=== PATIENT | male | born 1970 | race Caucasian/White ===

== ENCOUNTER 2018-04-16 08:48 | Inpatient (IN) | payer BC, OTHER, SELFPAY ==
[2018-04-16 09:23] LABS: #Lymphocytes 1.5 thou/uL (1.20-3.40); #Monocytes 0.6 thou/uL (0.11-0.59); #Neutrophils 7.2 thou/uL (1.40-6.50); %Basophils 0.2 % (0.0-1.0); %Eosinophils 0.1 % (0.0-10.0); %Lymphocytes 15.9 % (21.0-51.0); %Monocytes 6.5 % (0.0-10.0); %Neutrophils 77.3 % (42.0-75.0); Hemoglobin 15.6 g/dL (14.0-18.0); Mean Corpuscular HGB CONC 33.5 g/dL (32.0-36.0); Mean Corpuscular Hemoglobin 34.2 pg (27.0-31.0); Mean Platelet Volume 7.6 fL (7.4-10.4); Platelet Count 255 thou/uL (130-400); RBC Distribution Width 11.1 % (11.5-14.5); Red Blood Cell (RBC) Count 4.57 mill/uL (4.70-6.10); White Blood Cell (WBC) Count 9.4 thou/uL (4.8-10.8)
[2018-04-16] MEDS ORDERED: Iopamidol 370 76% 100 ML VIAL ONE (09:29)
[2018-04-16] MEDS ORDERED: Iopamidol 370 76% 50 ML VIAL FS ONE (09:29)
[2018-04-16] MEDS ORDERED: Aspirin Chewable 81 MG TAB ONE (09:37)
[2018-04-16 09:45] LABS: ALT (SGPT) 38 U/L (8-55); AST (SGOT) 117 U/L (5-34); Albumin 4.6 g/dL (3.5-5.0); Alkaline Phosphatase 122 U/L (40-150); Anion Gap 13 mmol/L (10-20); BUN (Urea Nitrogen) 11 mg/dL (8.9-20.6); Bilirubin, Total 0.5 mg/dL (0.2-1.2); CK (CPK) 1672 U/L (30-200); Calc. Creatinine Clearance 0 mL/min (70-130); Calcium 11.3 mg/dL (7.8-10.44); Carbon Dioxide 28 mmol/L (22-29); Chloride 101 mmol/L (98-107); Estimated GFR-MDRD 78; Globulin 3.1 g/dL (2.4-3.5); Glucose 124 mg/dL (70-105); Potassium 4.1 mmol/L (3.5-5.1); Protein, Total 7.7 g/dL (6.0-8.3); Sodium 138 mmol/L (136-145)
--- NOTE | 2018-04-16 10:01 | RAD ---
PA AND LATERAL CHEST: History: Chest pain. Palpitations. FINDINGS: Heart size is normal. The lungs are expanded without focal areas of consolidation, pneumothoraces or pleural effusions. No acute osseous abnormality is seen. IMPRESSION: No radiographic evidence of acute cardiopulmonary process. POS: C
[2018-04-16] MEDS ORDERED: Nitroglycerin 2% Ointment 1 INCH/1 GM Packet ONE (10:26)
[2018-04-16 10:31] LABS: Bilirubin Negative (Negative); Blood, Urine Moderate (Negative); Clarity CLOUDY (Clear); Glucose, Urine (Dipstick) Negative (Negative); Leukocyte Moderate (Negative); Nitrite Negative (Negative); Protein, Urine (Dipstick) 100 mg/dL (Neg-Trace); Specific Gravity, Urine 1.026 (1.002-1.036); Urobilinogen 0.2 mg/dL (0.2-1.0); pH, Urine 5.5 (5.0-9.0)
[2018-04-16 10:32] LABS: Bacteria/HPF None Seen HPF (None Seen); Hyaline Casts/LPF 4-6 HYALINE CAST LPF (0-3 Hyaline); Pathc Cast-AUWi Flag 0.29 (0-2.49)
[2018-04-16 10:38] LABS: Renal Epithelial 0-3 HPF (0-3); Transitional Epithelial 0-3 HPF (0-3)
[2018-04-16 10:43] LABS: Amphetamine Not Detected (NotDetected); Barbiturates Screen Not Detected (NotDetected); Benzodiazepine Screen Not Detected (NotDetected); Cocaine Metabolite Screen Not Detected (NotDetected); Medtox Control Line Valid? VALID (VALID); Medtox Reader # READER 4; Methadone Not Detected (NotDetected); Methamphetamine Not Detected (NotDetected); Opiate Screen Not Detected (NotDetected); Oxycodone Screen Not Detected (NotDetected); Phencyclidine (PCP) Not Detected (NotDetected); THC/Cannabinoid Screen Not Detected (NotDetected); Tricyclic Screen Not Detected (NotDetected)
[2018-04-16] MEDS ORDERED: Enoxaparin Sodium 100 MG/ML SYRINGE ONE (10:43)
[2018-04-16 10:51] LABS: CKMB 184.8 ng/mL (0-6.6)
[2018-04-16 11:10] LABS: Acetaminophen Less than 6.0 mcg/mL (10.0-30.0); Alcohol Less than 10 mg/dL (Less than 10); Salicylate Less than 8.0 mg/dL (15.0-30.0)
[2018-04-16] MEDS ORDERED: Fentanyl 100 MCG/2 ML VIAL ONE ×2 (11:28→12:35)
[2018-04-16] MEDS ORDERED: Nitroglycerin 50 MG/250 ML BOT 250 ML ONE (11:45)
[2018-04-16] MEDS ORDERED: Midazolam HCl 2 mg/2 ml Vial ONE (12:35)
[2018-04-16] MEDS ORDERED: Verapamil 5 MG/2 ML VIAL ONE (12:35)
[2018-04-16] MEDS ORDERED: Nitroglycerin 100MG/250ML BOT 250 ML ONE (12:35)
[2018-04-16] MEDS ORDERED: Heparin 10,000 UNITS/1 ML VIAL ONE (12:35)
[2018-04-16] MEDS ORDERED: Lidocaine 1% (PF) 30 ML VIAL ONE (12:40)
[2018-04-16] MEDS ORDERED: Adenosine 6 MG/2 ML VIAL ONE (13:19)
[2018-04-16] MEDS ORDERED: Aggrastat 12.5 MG/250 ML 250 ML ONE (13:54)
[2018-04-16] MEDS ORDERED: Sodium Chloride 0.9% 1,000 ML IV SCH ×2 (14:11→14:15)
[2018-04-16] MEDS ORDERED: Ondansetron PF 4 MG/2 ML Vial IVP PRN (14:11)
[2018-04-16] MEDS ORDERED: Aggrastat 12.5 MG/250 ML 250 ML IVPB SCH (14:15)
[2018-04-16 14:52] VITALS: BMI 23.8
[2018-04-16 17:34] LABS: Troponin I 140.218 ng/mL (< 0.028)
--- NOTE | 2018-04-16 17:43 | CON ---
DATE OF CONSULTATION: 04/16/2018 REASON FOR CONSULTATION: Chest pain. HISTORY OF PRESENT ILLNESS: Mr. Colmenares is a pleasant 48-year-old white gentleman, who comes to the hospital for substernal chest pain that has been going on for about 12 hours. He was lifting some heavy bags yesterday as his is in the hospital and he was climbing some stairs and had sudden onset of chest tightness and diaphoretic. He made it to his 's room who was in the hospital for other reasons, and noted he was pale and diaphoretic and told him he did not look good and to go home. He actually went home and could not sleep, could not get comfortable all night long. This morning because he kept having the pain, he decided to come in for evaluation. In the ER, he was noted to have initial troponin of 8. He had ongoing chest pain. He did get better with morphine. However, his EKG was concerning for an evolving anterior NM, so Cardiology was consulted. On our evaluation, Mr. Colmenares was pain free as he had just received some morphine. However, his EKG agreed with Dr. Matthews that was concerning for an evolving anterior NM, so he was taken to the catheterization lab, where he was found to have an occluded LAD. This was opened successfully. Talking with Mr. Colmenares before the procedure, he stated that he did not think he would be able to take medicines for a whole year, so he actually picked the bare-metal stents versus drug-eluting stents, which I think it is appropriate as he is being honest with how he takes medicines. He did quite well during the procedure. He had two bare-metal stents placed in his LAD and is doing much better. His pain level is now down to zero, and his blood pressure is much better controlled. PAST MEDICAL HISTORY: 1. Hypertension. 2. Hyperlipidemia. PAST SURGICAL HISTORY: Kidney stone removal. SOCIAL HISTORY: Social alcohol use. Denies drug use. No tobacco. OUTPATIENT MEDICATIONS: Amlodipine 10 mg a day. ALLERGIES: NO KNOWN DRUG ALLERGIES. REVIEW OF SYSTEMS: A 12-point review of systems was done and was found to be negative unless stated in the history of present illness. PHYSICAL EXAMINATION: VITAL SIGNS: Temperature 98.0, pulse 75, respiratory rate 24, saturating 99% on room air, blood pressure 174/108. GENERAL: Awake, alert, and oriented x3. No distress. HEENT: Normocephalic and atraumatic. NECK: Supple. LUNGS: Clear. CARDIOVASCULAR: S1 and S2. No S3 or S4. No murmurs. ABDOMEN: Soft. Positive bowel sounds. EXTREMITIES: No edema. SKIN: Warm and dry. LABORATORY DATA: Laboratory work was reviewed. UDS was negative. UA with moderate leukocyte esterase, greater than 50 white cells. Chemistries unremarkable except for glucose of 124, calcium 11.3, AST 117, CK-MB was 184 on arrival, and a troponin of 8.3 already. CBC with a hemoglobin of 15, hematocrit 46, platelet count 255. EKG was reviewed. Chest x-ray was reviewed. ASSESSMENT AND PLAN: 1. Anterior ST-elevation myocardial infarction, late presentation, status post bare-metal stent to the left anterior descending artery. Doing better. I expect him to have severe left ventricular dysfunction given the late presentation of his myocardial infarction. 2. Hypertension: Blood pressure is better after pain is better controlled. We will start low-dose beta polly. We will probably hold off on any more amlodipine as he will need heart failure medications. 3. Hyperlipidemia. PLAN: 1. High dose statin 80 mg of atorvastatin. 2. Aspirin 81 and Brilinta 90 mg b.i.d. for 1 month minimum ideally for one year. 3. We will start low-dose beta polly. Hold on the calcium channel polly. 4. ZULEMA inhibitor as blood pressure allows next few days. 5. Admit to the ICU. Thank you for letting me to participate in the care of your patient. We will follow. Job ID: [id number]
[2018-04-16] MEDS: Carvedilol 3.125 MG TAB PO SCH (18:44)
--- NOTE | 2018-04-16 18:47 | HP ---
CHIEF COMPLAINT: Chest pain. HISTORY OF PRESENT ILLNESS: The patient is a 48-year-old male, who came to see his who is hospitalized at [facility] and he visited with her and he went home, he started having some chest pain. He felt that this was related to the heavy object he was caring with him. He put some ice on his chest, but it did not really change anything. He got clammy and he did not have any nausea or vomiting. He came back and was found to have elevated troponin when he was evaluated in the emergency room and his decision was made about further investigation of his problem and treatment of his cardiac condition. At the time of admission, his blood pressure was elevated at 187/108, pulse was 93, and respirations 20 and nonlabored. PAST MEDICAL HISTORY: 1. Hypertension. 2. Nephrolithiasis. PAST SURGICAL HISTORY: Kidney stone removal more than 10 years ago. PSYCHIATRIC HISTORY: None. SOCIAL HISTORY: He drinks socially. He denies any alcohol intake. He smokes marijuana from time to time. MEDICATIONS: Amlodipine. ALLERGIES: NONE. REVIEW OF SYSTEMS: All 14 systems were reviewed and they were negative except for symptoms mentioned in the HPI. PHYSICAL EXAMINATION: GENERAL: He is not in any shortness of breath at the time of my visit, but he complains about the chest pain, rated at 6 or 7. VITAL SIGNS: His blood pressure is 181/132, pulse is 84, and respiratory rate is 20. He is afebrile. HEENT: His head is atraumatic and normocephalic. Eyes are PERRLA. Sclerae are nonicteric. Oral mucosa is moist. NECK: Supple. LUNGS: Clear. HEART: S1 and S2, normal. No S3. No S4. ABDOMEN: Soft and nontender. Bowel sounds are present. No organomegaly. EXTREMITIES: No clubbing, cyanosis, or edema. NEUROLOGIC: He is alert and oriented x4. There is no any motor or sensory deficit present. Cranial nerves are intact. LABORATORY DATA: Labs showed white count of 9.4, hemoglobin 15.6, hematocrit 46.6, and platelet count is 255,000, normal electrolytes. Glucose 124, creatinine 1.02, calcium 11.3, creatine kinase 1,672, CK-MB 184.8, troponin I 8.391. Urine showed 100 of proteins; trace of ketones; moderate blood; moderate leukocyte esterases; wbc's greater than 52, too numerous to count; 4 to 6 squamous epithelial cells; and 4 to 6 hyaline casts. Toxicology negative. Plasma alcohol less than 10. Chest x-ray personally reviewed by me did not show any acute cardiopulmonary problem. Electrocardiogram showed normal sinus rhythm with inverted T-waves in V1, V2, V4, and V5. Q-wave in V2 and V3. IMPRESSION: 1. Acute coronary syndrome. 2. Uncontrolled hypertension. 3. Possible urinary tract infection. PLAN: Admission to Critical Care. Condition is guarded. IV normal saline 100 mL/h. Bathroom privileges and heart healthy diet. Cardiology consultation with Dr. Espinosa was contacted and he wants to take him to the laborer airport maintenance the next 30 minutes. He received 4 baby aspirins. We will start him on nitroglycerin drip and morphine p.r.n. He received 20 mg of labetalol IV push and Nitro-Bid transdermal 1 inch topical. He will have SCDs for DVT prophylaxis. Job ID: [id number]
[2018-04-16] MEDS ORDERED: ALPRAZolam 0.5 MG TAB PO SCH (20:00)
[2018-04-16] MEDS: TICAGRELOR 90 MG TABLET PO SCH (20:25)
[2018-04-16] MEDS: Atorvastatin Calcium 40 MG TAB PO SCH (20:25)
[2018-04-16 23:14] LABS: Critical Call Chem Troponin I RESULT DECREASING
[2018-04-16 23:35] LABS: CKMB 178.3 ng/mL (0-6.6); Critical Call CKMB RESULT DECREASING
[2018-04-17 06:04] LABS: #Eosinphils 0.1 thou/uL (0.0-0.7); #Lymphocytes 1.8 thou/uL (1.20-3.40); #Monocytes 0.6 thou/uL (0.11-0.59); #Neutrophils 4.9 thou/uL (1.40-6.50); %Basophils 0.6 % (0.0-1.0); %Eosinophils 0.9 % (0.0-10.0); %Monocytes 8.2 % (0.0-10.0); %Neutrophils 66.4 % (42.0-75.0); Hemoglobin 14.9 g/dL (14.0-18.0); Mean Corpuscular HGB CONC 34.4 g/dL (32.0-36.0); Mean Corpuscular Hemoglobin 35.2 pg (27.0-31.0); Mean Platelet Volume 7.8 fL (7.4-10.4); Platelet Count 198 thou/uL (130-400); RBC Distribution Width 11.1 % (11.5-14.5); Red Blood Cell (RBC) Count 4.24 mill/uL (4.70-6.10); White Blood Cell (WBC) Count 7.3 thou/uL (4.8-10.8)
[2018-04-17 06:34] LABS: ALT (SGPT) 49 U/L (8-55); AST (SGOT) 188 U/L (5-34); Albumin 4.2 g/dL (3.5-5.0); Alkaline Phosphatase 110 U/L (40-150); Anion Gap 13 mmol/L (10-20); BUN (Urea Nitrogen) 9 mg/dL (8.9-20.6); Bilirubin, Total 0.7 mg/dL (0.2-1.2); Calc. Creatinine Clearance 113 mL/min (70-130); Calcium 9.7 mg/dL (7.8-10.44); Carbon Dioxide 23 mmol/L (22-29); Chloride 103 mmol/L (98-107); Estimated GFR-MDRD Greater than 90; Globulin 2.7 g/dL (2.4-3.5); Glucose 99 mg/dL (70-105); Potassium 3.4 mmol/L (3.5-5.1); Protein, Total 6.9 g/dL (6.0-8.3); Sodium 136 mmol/L (136-145)
[2018-04-17 06:49] LABS: Critical Call Chem Troponin I RESULT DECREASING
[2018-04-17 07:09] LABS: CKMB 72.1 ng/mL (0-6.6); Critical Call CKMB RESULT DECREASING
--- NOTE | 2018-04-17 08:20 | PRG ---
DATE OF SERVICE: 04/17/2018 SUBJECTIVE: The patient is feeling significantly better this morning. He had several hours of good sleep. OBJECTIVE: VITAL SIGNS: Blood pressure is 145/88, pulse is 92, respiratory rate is 14 and O2 saturation is 99% on room air. HEENT: His head is atraumatic and normocephalic. Pupils are responding to light properly. Sclerae are nonicteric. Oral mucosa is somewhat dry. NECK: Supple. No lymphadenopathy. Thyroid is not palpable. LUNGS: Clear. HEART: S1 and S2 normal. No S3. No S4. ABDOMEN: Soft, slightly tender in the epigastric area on deep palpation. No guarding. EXTREMITIES: No clubbing, cyanosis, or edema. NEUROLOGIC: He is alert and oriented x4. There is no any motor or sensory deficit present. Cranial nerves are intact. LABORATORY DATA: Showed white count of 7.3, hemoglobin 14.9, hematocrit 43.3, platelet count is 198,000. Sodium of 136, potassium 3.4, chloride 103, CO2 of 23, BUN 9, creatinine 0.89. AST is up to 188 from 117 yesterday. ALT within normal limits. Alkaline phosphatase within normal limits. The rest of chemistry within normal limits except for the last 3 troponins, which are up to 140.2, 84.1, and 51.6. IMPRESSION: 1. Acute myocardial infarction, status post cardiac catheterization. Final report to be presented to us this morning, but we know that Dr. Espinosa found a clot in, I believe, LAD. 2. Uncontrolled hypertension, improved. 3. Possible urinary tract infection. PLAN: Plan is to do Gram stain and culture on his urine. Start him on Levaquin 500 mg once a day p.o. Continue his aspirin, carvedilol, Brilinta and atorvastatin. Job ID: [id number]
[2018-04-17] MEDS: Aspirin Chewable 81 MG TAB PO SCH (08:27)
[2018-04-17] MEDS: Carvedilol 3.125 MG TAB PO SCH ×2 (08:27→16:57)
[2018-04-17] MEDS: TICAGRELOR 90 MG TABLET PO SCH ×2 (10:30→21:03)
--- NOTE | 2018-04-17 14:19 | PDOC.CTH ---
Cardiology Progress Note - Subjective Doing well. No chest pain. - Objective Vital Signs Temp Pulse Ox 04/17/18 12:00 98.4 F 04/17/18 08:00 98.4 F 97 Weight 175 lb 7.807 oz 04/16/18 04/17/18 04/18/18 06:59 06:59 06:59 Intake Total 1666 500 Output Total 3770 600 Balance -2104 -100 - Physical Examination General/Neuro: alert & oriented x3, NAD Neck: no JVD present Lungs: CTA, unlabored respirations Heart: RRR Abdomen: NT/ND Extremities: other: (no edema) - Telemetry Telemetry Rhythm: NSR - Labs Result Diagrams: 04/17/18 05:44 04/17/18 05:44 Troponin/CKMB CK-MB (CK-2) 72.1 ng/mL (0-6.6) H* 04/17/18 05:44 Troponin I 51.611 ng/mL (< 0.028) H* 04/17/18 05:44 - Assessment/Plan 1. Acute anterior STEMI, late presentation. 2. Ischemic CM EF at 40-45% with apical akinesis. 3. HTN PLAN: - s/p BMS to LAD. - Continue Aspirin and statin - Brilinta for one month ideally for 1 yr. - BB and ACEI for both LV and HTN - Will transfer to floor.
[2018-04-17] MEDS ORDERED: Potassium Chloride 20 MEQ TAB PO SCH (14:30)
[2018-04-17] MEDS: Atorvastatin Calcium 40 MG TAB PO SCH (21:03)
[2018-04-17] MEDS: Zolpidem Tartrate 5 MG TAB PO PRN (22:14)
[2018-04-18] MEDS ORDERED: Sodium Chloride 0.9% 10 ML ONE (08:00)
[2018-04-18] MEDS: Carvedilol 3.125 MG TAB PO SCH ×2 (08:47→17:02)
[2018-04-18] MEDS: Aspirin Chewable 81 MG TAB PO SCH (08:47)
[2018-04-18] MEDS: TICAGRELOR 90 MG TABLET PO SCH ×2 (08:47→21:13)
--- NOTE | 2018-04-18 14:13 | PRG ---
DATE OF SERVICE: 04/18/2018 SUBJECTIVE: The patient is seen and examined at bedside. He does not have much complaints to offer. He is able to ambulate in the hallway without any discomfort. OBJECTIVE: VITAL SIGNS: Blood pressure is 130/95, pulse is 99, respiratory rate is 17, and O2 saturation is 99% on room air. HEENT: His head is atraumatic and normocephalic. Eyes are PERRLA. Sclerae are nonicteric. Oral mucosa is moist. NECK: Supple. LUNGS: Clear. HEART: S1, S2 normal. No S3. No S4. No any murmur. ABDOMEN: Soft, nontender. EXTREMITIES: No clubbing, cyanosis, or edema. NEUROLOGICAL: Intact. LABORATORY DATA: None today. DIAGNOSTIC DATA: Echocardiogram showed ejection fraction visually estimated at 40% to 45%, grade 3 diastolic dysfunction, kinesis of all four apical segments. Mildly dilated left atrium. Trace mitral regurgitation and tricuspid regurgitation. IMPRESSION: 1. Anterior ST-elevation myocardial infarction. 2. Ischemic cardiomyopathy with LVEF of 40% to 45% with apical kinesis. 3. Possible urinary tract infection. 4. Uncontrolled hypertension, improved. DISCUSSION: The patient is covered with Levaquin for possible UTI. Apparently, he has some history of nephrolithiasis. His urine culture is growing less than 10,000 colonies of skin ru. We will continue his current regimen. He might be able to go home tomorrow. The plan is to continue aspirin, statin, Brilinta for one month. Continue beta polly and ZULEMA inhibitor and he should be able to go home by the next 24 hours. Job ID: [id number]
--- NOTE | 2018-04-18 17:58 | PDOC.CTH ---
Cardiology Progress Note - Subjective Doing well. No chest pain. Walking around the halls without issues. - Objective Vital Signs Temp Pulse Pulse Pulse Resp BP BP 04/18/18 16:58 98.4 F 95 17 04/18/18 12:35 87 90 124/90 130/95 H 04/18/18 12:05 98.3 F 86 17 04/18/18 08:41 98.4 F 99 17 BP BP Pulse Ox 04/18/18 16:58 120/84 04/18/18 12:35 04/18/18 12:05 128/72 100 04/18/18 08:41 128/89 99 Weight 176 lb 3.2 oz 04/17/18 04/18/18 04/19/18 06:59 06:59 06:59 Intake Total 1666 740 Output Total 3770 600 Balance -2104 140 - Physical Examination General/Neuro: alert & oriented x3, NAD Neck: no JVD present Lungs: CTA, unlabored respirations Heart: RRR Abdomen: NT/ND Extremities: other: (no edema) - Telemetry Telemetry Rhythm: NSR - Labs Result Diagrams: 04/17/18 05:44 04/17/18 05:44 Troponin/CKMB CK-MB (CK-2) 72.1 ng/mL (0-6.6) H* 04/17/18 05:44 Troponin I 51.611 ng/mL (< 0.028) H* 04/17/18 05:44 - Assessment/Plan 1. Acute anterior STEMI, late presentation. 2. Ischemic CM EF at 40-45% with apical akinesis. 3. HTN PLAN: - s/p BMS to LAD. - Continue Aspirin and statin - Brilinta for one month ideally for 1 yr. - BB and ACEI for both LV and HTN - Discharge home tomorrow if he remains this stable. - Follow up in the office in 1 month.
[2018-04-18] MEDS ORDERED: Potassium Chloride 20 MEQ TAB PO SCH (18:00)
[2018-04-18] MEDS: Zolpidem Tartrate 5 MG TAB PO PRN (21:13)
[2018-04-18] MEDS: Atorvastatin Calcium 40 MG TAB PO SCH (21:13)
[2018-04-19 05:29] LABS: Anion Gap 16 mmol/L (10-20); BUN (Urea Nitrogen) 15 mg/dL (8.9-20.6); Calc. Creatinine Clearance 107 mL/min (70-130); Calcium 9.6 mg/dL (7.8-10.44); Carbon Dioxide 19 mmol/L (22-29); Chloride 107 mmol/L (98-107); Estimated GFR-MDRD 85; Glucose 90 mg/dL (70-105); Magnesium 2.2 mg/dL (1.6-2.6); Potassium 3.8 mmol/L (3.5-5.1); Sodium 138 mmol/L (136-145)
[2018-04-19 08:19] VITALS: TEMP 97.9
[2018-04-19] MEDS: Aspirin Chewable 81 MG TAB PO SCH (08:19)
[2018-04-19] MEDS: Carvedilol 3.125 MG TAB PO SCH (08:19)
[2018-04-19] MEDS: TICAGRELOR 90 MG TABLET PO SCH (08:19)
[2018-04-19] MEDS ORDERED: Lisinopril 2.5 MG TAB PO SCH (09:00)
--- NOTE | 2018-04-19 10:18 | PQF ---
SILVANA RUBI DR. [id number] CLINICAL DOCUMENTATION IMPROVEMENT CLARIFICATION FORM: ICD-10 Updated PLEASE DO AN ADDENDUM TO THE PROGRESS NOTE WITH ANY DOCUMENTATION UPDATES OR ADDITIONS AND CARRY THROUGH TO DC SUMMARY. THANK YOU. DATE: 04-19-2018 ATTN: DR. MORRIS Please exercise your independent, professional judgment in responding to the clarification form. Clinical indicators are provided on the bottom of this form for your review Please check appropriate box(s): HEART FAILURE: A. TYPE: [x ] Systolic / HFrEF [ ] Diastolic / HFpEF [ ] Combined Systolic / Diastolic B. ACUITY [ x ] Acute [ ] Acute on Chronic [ ] Chronic [ ] Other diagnosis [ ] Unable to determine In addition, please specify: Present on Admission (POA): [ x] Yes [ ] No [ ] Unable to determine For continuity of documentation, please document condition throughout progress notes and discharge summary. Thank You. CLINICAL INDICATORS - SIGNS / SYMPTOMS / LABS Ejection Fraction =_40-45__ % STEMI S/P bare metal stent to left ant desc art. 04/17-ALEXANDRA: ISCHEMIC CM EF AT 40-45% WITH APICAL AKINESIS. 04/18-CHM: GRADE 3 DIASTOLIC DYSFX. RISKS: Hypertension TREATMENTS: Cardiac Consult PCI with BARE METAL STENT X 1 Cardiac monitoring / telemetry Thank you, Rebecca (This form is maintained as a part of the permanent medical record) 2015 [employer] All Rights Reserved Rebecca Perez RN, CDIS [email or web address] [phone] [facility]
[2018-04-19 11:08] VITALS: BP 127/84
--- NOTE | 2018-04-20 01:38 | DIS ---
DATE OF ADMISSION: 04/16/2018 DATE OF DISCHARGE: 04/19/2018 FINAL DIAGNOSES: 1. ST-elevation myocardial infarction, status post bare metal stent placement in the left anterior descending. 2. Ischemic cardiomyopathy with ejection fraction around 45%. 3. Hypertension. CONSULTANTS: Dr. Deion Espinosa. PROCEDURES: Cardiac catheterization and stenting of LAD with bare metal stent. HOSPITAL COURSE: The patient is a 48-year-old male who was admitted to the hospital with acute onset of chest pain, which he developed suddenly when caring his belongings. He thought that this was a pulled muscle because he was caring heavy objects, but he became clammy. He came to see his in the hospital and he finally ended up in the emergency room for evaluation. He was found to have elevated troponin. Blood pressure was high at 187/108. Ductfixing Plumber was called, Dr. Espinosa, who took him to the cardiac cardiac cath lab manager where he had cardiac catheterization done and placement of a bare metal stent in the LAD. His postprocedure phase was uneventful. Echocardiogram showed ejection fraction visualized estimated at 40% to 45% with mild grade diastolic dysfunction, akinesis of all 4 apical segments, some mild dilatation of the left atrium, trace mitral regurgitation, and mild tricuspid regurgitation. His postprocedure phase was not complicated by any other cardiac arrhythmia. He is able to ambulate in the hallway. PHYSICAL EXAMINATION: VITAL SIGNS: His blood pressure today is 129/82, pulse is 87, respiratory rate is 16, O2 saturation is 95. LUNGS: Clear. HEART: S1 and S2 normal. No S3. No S4. ABDOMEN: Soft and nontender. Bowel sounds are present. No organomegaly. EXTREMITIES: No clubbing, cyanosis, or edema. NEUROLOGICAL: He is alert and oriented x4. There are no any sensory or motor deficits present. Cranial nerves are intact. LABORATORY DATA: He had 3 sets of troponins after the 1st set, which was up to 8.3, the second was 140, the third one was 84, the fourth one was 51.6. There was a questionable UTI, so he was started on levofloxacin, but culture came back negative for any significant growth and levofloxacin was stopped. His drug screening was done in the emergency room and it came back within normal limits. DIET: He is discharged home with recommendation to stay on heart healthy diet. ACTIVITIES: He will avoid any strenuous activities for the next few weeks until he sees Dr. Espinosa for followup in 1 month. He will make decision about the next step. FOLLOWUP: He is going to follow up with his primary care physician in 1 week. MEDICATIONS: At the time of discharge; 1. Carvedilol 3.125 mg twice a day. 2. Lisinopril 2.5 mg once a day. 3. Ticagrelor 90 mg twice a day. 4. Atorvastatin 80 mg at bedtime. 5. Aspirin 81 mg once a day. The patient is seen and examined before he is discharged home. TIME SPENT: Discharge time is less than 30 minutes. Job ID: [id number]
== END 2018-04-19 13:23 | disposition home or self-care (01) | DRG 248 ==
LOC: ERS 08:48 → CCU 14:38 → 2NO 04-17 14:54
PROVIDERS: ADMIT Internal Medicine Cardiovascular Disease; ATTEND Internal Medicine Cardiovascular Disease
PROC: 02703EZ Dilation of Coronary Artery, One Artery with Two Intraluminal Devices, Percutaneous Approach (ICD-10-PCS; principal; 2018-04-16)
PROC: 02C03ZZ Extirpation of Matter from Coronary Artery, One Artery, Percutaneous Approach (ICD-10-PCS; 2018-04-16)
PROC: 4A023N7 Measurement of Cardiac Sampling and Pressure, Left Heart, Percutaneous Approach (ICD-10-PCS; 2018-04-16)
PROC: B2111ZZ Fluoroscopy of Multiple Coronary Arteries using Low Osmolar Contrast (ICD-10-PCS; 2018-04-16)
DX: I21.09 ST elevation (STEMI) myocardial infarction involving other coronary artery of anterior wall (principal); I50.21 Acute systolic (congestive) heart failure; I16.1 Hypertensive emergency; M62.82 Rhabdomyolysis; I11.0 Hypertensive heart disease with heart failure; E78.5 Hyperlipidemia, unspecified; I25.10 Atherosclerotic heart disease of native coronary artery without angina pectoris; I25.5 Ischemic cardiomyopathy; I34.0 Nonrheumatic mitral (valve) insufficiency; I36.1 Nonrheumatic tricuspid (valve) insufficiency; Z79.899 Other long term (current) drug therapy; Z87.442 Personal history of urinary calculi
CPT/HCPCS: 36415; 71046; 80048; 80053; 80306; 80307; 81003; 81015; 82550; 82553; 83735; 84484; 85025; 87086; 92933; 93005; 93010; 93306; 93798; 96365; 96372; 96375; 96376; 99152; 99153; C1757; C1769; C1876; J0153; J1644; J1650; J2001; J2250; J3010; J3246; J3490; Q9967

== ENCOUNTER 2021-03-07 23:39 | Inpatient (IN) | payer BC ==
[2021-03-08 00:14] LABS: #Lymphocytes 0.9 thou/uL (1.20-3.40); #Monocytes 0.7 thou/uL (0.11-0.59); #Neutrophils 6.5 thou/uL (1.40-6.50); %Basophils 0.3 % (0.0-1.0); %Eosinophils 0.3 % (0.0-10.0); %Lymphocytes 10.9 % (21.0-51.0); %Monocytes 8.3 % (0.0-10.0); %Neutrophils 80.3 % (42.0-75.0); Hemoglobin 15.3 g/dL (14.0-18.0); Mean Corpuscular HGB CONC 34.9 g/dL (32.0-36.0); Mean Corpuscular Hemoglobin 36.2 pg (27.0-31.0); Mean Platelet Volume 7.5 fL (7.4-10.4); Platelet Count 169 thou/uL (130-400); RBC Distribution Width 11.1 % (11.5-14.5); Red Blood Cell (RBC) Count 4.23 mill/uL (4.70-6.10); White Blood Cell (WBC) Count 8.1 thou/uL (4.8-10.8)
[2021-03-08 00:33] LABS: ALT (SGPT) 67 U/L (8-55); AST (SGOT) 76 U/L (5-34); Albumin 4.4 g/dL (3.5-5.0); Alkaline Phosphatase 116 U/L (40-110); Anion Gap 20 mmol/L (10-20); BUN (Urea Nitrogen) 28 mg/dL (8.4-25.7); Bilirubin, Total 0.9 mg/dL (0.2-1.2); Calc. Creatinine Clearance 0 mL/min (70-130); Calcium 11.4 mg/dL (7.8-10.44); Carbon Dioxide 23 mmol/L (22-29); Chloride 94 mmol/L (98-107); Globulin 3.7 g/dL (2.4-3.5); Glucose 114 mg/dL (70-105); Potassium 3.4 mmol/L (3.5-5.1); Protein, Total 8.1 g/dL (6.0-8.3); Sodium 134 mmol/L (136-145)
[2021-03-08] MEDS ORDERED: Ondansetron PF 4 MG/2 ML Vial ONE (01:24)
[2021-03-08] MEDS ORDERED: Morphine 4 MG/ML VIAL ONE ×2 (01:24→03:18)
[2021-03-08 01:55] LABS: Bacteria/HPF None Seen HPF (None Seen); Bilirubin Negative (Negative); Blood, Urine 2+ (Negative); Clarity Clear (Clear); Glucose, Urine (Dipstick) 100 mg/dL (Negative); Ketone, Urine 20 mg/dL (Negative); Leukocyte Negative Leu/uL (Negative); Nitrite Negative (Negative); Protein, Urine (Dipstick) 300 mg/dL (Neg-Trace); Specific Gravity, Urine 1.009 (1.002-1.036); Squamous Epithelial None Seen HPF (0-3); Urobilinogen Normal mg/dL (Less than 2)
[2021-03-08 02:26] LABS: CKMB 2.2 ng/mL (0-6.6)
[2021-03-08] MEDS ORDERED: Morphine 4 MG/ML VIAL SLOW IVP PRN (03:59)
[2021-03-08] MEDS ORDERED: Sodium Chloride 0.9% 1,000 ML IV SCH ×2 (04:00→12:45)
[2021-03-08] MEDS ORDERED: Ondansetron ODT 4 MG TAB SL PRN (04:00)
[2021-03-08] MEDS ORDERED: Ondansetron PF 4 MG/2 ML Vial IVP PRN ×2 (04:00→12:41)
[2021-03-08 06:49] LABS: Troponin I 0.047 ng/mL (< 0.028)
[2021-03-08 07:53] LABS: Creatinine, Urine 39.92 mg/dL (63-166)
[2021-03-08 10:27] LABS: SARS-CoV-2 NAA Rapid Test Not Detected (NotDetected)
[2021-03-08] MEDS ORDERED: Ondansetron ODT 4 MG TAB PO PRN (12:41)
[2021-03-08] MEDS ORDERED: Acetaminophen 500 MG TAB PO PRN (12:41)
[2021-03-08 14:42] LABS: Hemoglobin A1c 5.3 % (4.0-6.0)
[2021-03-08 14:58] LABS: Anion Gap 16 mmol/L (10-20); BUN (Urea Nitrogen) 33 mg/dL (8.4-25.7); Calc. Creatinine Clearance 0 mL/min (70-130); Calcium 10.2 mg/dL (7.8-10.44); Carbon Dioxide 23 mmol/L (22-29); Chloride 94 mmol/L (98-107); Glucose 114 mg/dL (70-105); Potassium 3.3 mmol/L (3.5-5.1); Sodium 130 mmol/L (136-145)
[2021-03-08] MEDS ORDERED: Potassium Chloride 20 MEQ TAB PO SCH (15:15)
[2021-03-08 15:37] VITALS: BMI 28.8
[2021-03-08] MEDS: Sodium Chloride 0.9% 1,000 ML IV SCH ×2 (16:12→21:15)
[2021-03-08] MEDS ORDERED: Amlodipine 5 MG TAB PO SCH (19:15)
[2021-03-08] MEDS: Famotidine 20 MG TAB PO SCH (20:20)
[2021-03-08] MEDS ORDERED: HYDROcodone/Acetaminophen 5/325 mg Tablet PO PRN (20:38)
[2021-03-09] MEDS: Sodium Chloride 0.9% 1,000 ML IV SCH (03:46)
[2021-03-09 04:50] LABS: #Eosinphils 0.1 thou/uL (0.0-0.7); #Lymphocytes 0.9 thou/uL (1.20-3.40); #Monocytes 0.7 thou/uL (0.11-0.59); #Neutrophils 5.8 thou/uL (1.40-6.50); %Basophils 0.5 % (0.0-1.0); %Eosinophils 1.3 % (0.0-10.0); %Lymphocytes 12.3 % (21.0-51.0); %Monocytes 8.7 % (0.0-10.0); %Neutrophils 77.2 % (42.0-75.0); Hemoglobin 12.9 g/dL (14.0-18.0); Mean Corpuscular HGB CONC 33.6 g/dL (32.0-36.0); Mean Corpuscular Hemoglobin 34.9 pg (27.0-31.0); Mean Platelet Volume 7.9 fL (7.4-10.4); Platelet Count 143 thou/uL (130-400); RBC Distribution Width 11.1 % (11.5-14.5); White Blood Cell (WBC) Count 7.5 thou/uL (4.8-10.8)
[2021-03-09 05:02] LABS: ALT (SGPT) 52 U/L (8-55); AST (SGOT) 44 U/L (5-34); Albumin 3.6 g/dL (3.5-5.0); Alkaline Phosphatase 91 U/L (40-110); Anion Gap 16 mmol/L (10-20); BUN (Urea Nitrogen) 35 mg/dL (8.4-25.7); Bilirubin, Total 0.6 mg/dL (0.2-1.2); Calc. Creatinine Clearance 17 mL/min (70-130); Calcium 9.3 mg/dL (7.8-10.44); Carbon Dioxide 16 mmol/L (22-29); Chloride 101 mmol/L (98-107); Glucose 88 mg/dL (70-105); Potassium 3.4 mmol/L (3.5-5.1); Protein, Total 6.6 g/dL (6.0-8.3); Sodium 130 mmol/L (136-145)
[2021-03-09] MEDS ORDERED: Lactated Ringer's 1,000 ML IV SCH (05:45)
[2021-03-09] MEDS ORDERED: Aspirin 81 mg Enteric Coated Tablet PO SCH (09:00)
[2021-03-09] MEDS: Famotidine 20 MG TAB PO SCH ×2 (09:36→20:06)
[2021-03-09 15:48] LABS: Complement-C4 42.2 mg/dL (15-53)
[2021-03-09] MEDS: Lorazepam 0.5 MG TAB PO PRN ×2 (17:08→21:30)
[2021-03-09] MEDS: cefTRIAXone\\ROCEPHIN 1 GM in Sodium Chloride 0.9% 100 ML IVPB SCH (18:32)
[2021-03-09] MEDS: Sodium Bicarbonate Tab 325 MG TAB PO SCH (20:05)
[2021-03-09] MEDS: hydrALAZINE 20 MG/ML VIAL SLOW IVP PRN (23:42)
[2021-03-10] MEDS ORDERED: Lorazepam 1 MG TAB PO PRN
[2021-03-10] MEDS ORDERED: Lorazepam 2 MG/ML VIAL SLOW IVP SCH ×2 (01:45→02:00)
[2021-03-10 04:50] LABS: #Eosinphils 0.1 thou/uL (0.0-0.7); #Lymphocytes 0.8 thou/uL (1.20-3.40); #Monocytes 0.8 thou/uL (0.11-0.59); #Neutrophils 7.1 thou/uL (1.40-6.50); %Basophils 0.1 % (0.0-1.0); %Eosinophils 0.8 % (0.0-10.0); %Lymphocytes 8.9 % (21.0-51.0); %Neutrophils 81.3 % (42.0-75.0); Hemoglobin 12.9 g/dL (14.0-18.0); Mean Corpuscular HGB CONC 34.2 g/dL (32.0-36.0); Mean Corpuscular Hemoglobin 35.2 pg (27.0-31.0); Mean Platelet Volume 8.1 fL (7.4-10.4); Platelet Count 152 thou/uL (130-400); Red Blood Cell (RBC) Count 3.67 mill/uL (4.70-6.10); White Blood Cell (WBC) Count 8.8 thou/uL (4.8-10.8)
[2021-03-10 05:00] LABS: Albumin 3.9 g/dL (3.5-5.0); Anion Gap 17 mmol/L (10-20); BUN (Urea Nitrogen) 45 mg/dL (8.4-25.7); BUN/Creatinine Ratio 4.93; Calc. Creatinine Clearance 13 mL/min (70-130); Calcium 9.5 mg/dL (7.8-10.44); Carbon Dioxide 17 mmol/L (22-29); Chloride 100 mmol/L (98-107); Glucose 97 mg/dL (70-105); Magnesium 2.3 mg/dL (1.6-2.6); Potassium 3.4 mmol/L (3.5-5.1); Sodium 131 mmol/L (136-145)
[2021-03-10] MEDS ORDERED: Ondansetron ODT 4 MG TAB PO PRN (05:00)
[2021-03-10] MEDS ORDERED: Electrolyte Replacement Protocol 1 EACH FS PRN (05:00)
[2021-03-10] MEDS ORDERED: Lorazepam 2 MG/ML VIAL IM PRN (05:00)
[2021-03-10] MEDS ORDERED: Amlodipine 10 MG TAB PO SCH (05:45)
[2021-03-10] MEDS ORDERED: Potassium Chloride 20 MEQ TAB PO SCH (06:00)
[2021-03-10] MEDS: Thiamine HCl 200 MG/2 ML VIAL SLOW IVP SCH (06:06)
[2021-03-10] MEDS: Lorazepam 1 MG TAB PO SCH ×3 (06:10→17:45)
[2021-03-10] MEDS ORDERED: Amlodipine 5 MG TAB PO SCH (09:00)
[2021-03-10] MEDS: Folic Acid 1 MG TAB PO SCH (09:37)
[2021-03-10] MEDS: Famotidine 20 MG TAB PO SCH ×2 (09:37→21:17)
[2021-03-10] MEDS: Multivit, Therapeutic 1 TAB PO SCH (09:37)
[2021-03-10] MEDS: Sodium Bicarbonate Tab 325 MG TAB PO SCH ×2 (09:38→21:17)
[2021-03-10 12:07] LABS: Amphetamine Not Detected (NotDetected); Barbiturates Screen Not Detected (NotDetected); Benzodiazepine Screen Not Detected (NotDetected); Cocaine Metabolite Screen Not Detected (NotDetected); Methadone Not Detected (NotDetected); Methamphetamine Not Detected (NotDetected); Opiate Screen Detected (NotDetected); Oxycodone Screen Not Detected (NotDetected); Phencyclidine (PCP) Not Detected (NotDetected); THC/Cannabinoid Screen Not Detected (NotDetected); Tricyclic Screen Not Detected (NotDetected)
[2021-03-10 12:14] LABS: 24 Hr Creatinine 454.55 mg/24 hr (950-2490); Creatinine, Urine 24.57 mg/dL (63-166)
[2021-03-10] MEDS ORDERED: Labetalol HCl 100 MG/20 ML VIAL SLOW IVP PRN (12:14)
[2021-03-10] MEDS ORDERED: NIFEdipine XL 60 MG TAB PO SCH (12:45)
[2021-03-10] MEDS ORDERED: SODIUM CHLORIDE 0.9% IVPB SCH (15:00)
[2021-03-10] MEDS ORDERED: METHYLPREDNISOLONE SOD SUCC IVPB SCH (15:00)
[2021-03-10 15:53] LABS: ANA Symphony (Qualitative) Negative (Negative); ANA Symphony (Quantitative) 0.2 Ratio (< 0.7 Negative); dsDNA IgG Antibody 0.7 IU/mL (<10 Negative)
[2021-03-10] MEDS: cefTRIAXone\\ROCEPHIN 1 GM in Sodium Chloride 0.9% 100 ML IVPB SCH (17:45)
[2021-03-10] MEDS: hydrALAZINE 20 MG/ML VIAL SLOW IVP PRN (18:25)
[2021-03-10] MEDS: NIFEdipine XL 60 MG TAB PO SCH (21:16)
[2021-03-11] MEDS: Lorazepam 1 MG TAB PO SCH ×4 (00:34→18:50)
[2021-03-11 03:48] LABS: Albumin 3.8 g/dL (3.5-5.0); Anion Gap 19 mmol/L (10-20); BUN (Urea Nitrogen) 55 mg/dL (8.4-25.7); Calc. Creatinine Clearance 11 mL/min (70-130); Carbon Dioxide 15 mmol/L (22-29); Chloride 103 mmol/L (98-107); Glucose 165 mg/dL (70-105); Phosphorus 3.3 mg/dL (2.3-4.7); Potassium 3.7 mmol/L (3.5-5.1); Sodium 133 mmol/L (136-145)
[2021-03-11 04:02] LABS: Prothrombin Time 13.6 sec (12.0-14.7)
[2021-03-11 04:03] LABS: PTT 33.3 sec (22.9-36.1)
[2021-03-11] MEDS ORDERED: Lorazepam 1 MG TAB PO PRN (05:00)
[2021-03-11] MEDS: Thiamine HCl 200 MG/2 ML VIAL SLOW IVP SCH (05:32)
[2021-03-11] MEDS ORDERED: SODIUM CHLORIDE 0.9% IVPB SCH (09:00)
[2021-03-11] MEDS ORDERED: Amlodipine 10 MG TAB PO SCH (09:00)
[2021-03-11] MEDS ORDERED: METHYLPREDNISOLONE SOD SUCC IVPB SCH (09:00)
[2021-03-11] MEDS: Multivit, Therapeutic 1 TAB PO SCH (11:35)
[2021-03-11] MEDS: Sodium Bicarbonate Tab 325 MG TAB PO SCH ×2 (11:35→20:34)
[2021-03-11] MEDS: Folic Acid 1 MG TAB PO SCH (11:35)
[2021-03-11] MEDS: NIFEdipine XL 60 MG TAB PO SCH ×2 (11:36→20:33)
[2021-03-11] MEDS: Carvedilol 6.25 MG TAB PO SCH ×2 (11:37→20:33)
[2021-03-11] MEDS: METHYLPREDNISOLONE SOD SUCC IVPB SCH (11:40)
[2021-03-11] MEDS: SODIUM CHLORIDE 0.9% IVPB SCH (11:40)
[2021-03-11] MEDS ORDERED: Sodium Bicarbonate 2.5 MEQ/5 ML VIAL ONE (12:59)
[2021-03-11] MEDS: cefTRIAXone\\ROCEPHIN 1 GM in Sodium Chloride 0.9% 100 ML IVPB SCH (18:50)
[2021-03-11] MEDS: Famotidine 20 MG TAB PO SCH (20:34)
[2021-03-12] MEDS: Lorazepam 1 MG TAB PO SCH (00:16)
[2021-03-12] MEDS ORDERED: Lorazepam 1 MG TAB PO PRN (05:00)
[2021-03-12 05:12] LABS: Albumin 3.8 g/dL (3.5-5.0); Anion Gap 19 mmol/L (10-20); BUN (Urea Nitrogen) 71 mg/dL (8.4-25.7); BUN/Creatinine Ratio 6.41; Calc. Creatinine Clearance 11 mL/min (70-130); Calcium 9.7 mg/dL (7.8-10.44); Carbon Dioxide 16 mmol/L (22-29); Chloride 103 mmol/L (98-107); Glucose 169 mg/dL (70-105); Phosphorus 4.4 mg/dL (2.3-4.7); Potassium 3.8 mmol/L (3.5-5.1); Sodium 134 mmol/L (136-145)
[2021-03-12] MEDS: Lorazepam 0.5 MG TAB PO SCH ×3 (05:44→18:01)
[2021-03-12] MEDS: Thiamine HCl 200 MG/2 ML VIAL SLOW IVP SCH (06:22)
[2021-03-12] MEDS: SODIUM CHLORIDE 0.9% IVPB SCH (08:42)
[2021-03-12] MEDS: Sodium Bicarbonate Tab 325 MG TAB PO SCH ×2 (08:42→20:37)
[2021-03-12] MEDS: METHYLPREDNISOLONE SOD SUCC IVPB SCH (08:42)
[2021-03-12] MEDS: Multivit, Therapeutic 1 TAB PO SCH (08:43)
[2021-03-12] MEDS: Carvedilol 6.25 MG TAB PO SCH ×2 (08:43→20:38)
[2021-03-12] MEDS: NIFEdipine XL 60 MG TAB PO SCH ×2 (08:43→20:37)
[2021-03-12] MEDS: Folic Acid 1 MG TAB PO SCH (08:43)
[2021-03-12] MEDS ORDERED: Sodium Bicarbonate 2.5 MEQ/5 ML VIAL ONE (10:37)
[2021-03-12] MEDS ORDERED: Fentanyl 100 MCG/2 ML VIAL ONE (10:37)
[2021-03-12] MEDS ORDERED: Bisacodyl 10 MG SUPP PR PRN (15:32)
[2021-03-12] MEDS: Famotidine 20 MG TAB PO SCH (20:38)
[2021-03-12 22:08] LABS: Albumin, PEP 24hr Ur 46.9 % (NOT ESTAB.); Alpha-1-Globulin, PEP 24h Ur 6.5 % (NOT ESTAB.); Beta Globulin, PEP 24h Ur 17.1 % (NOT ESTAB.); Gamma Globulin, PEP 24h Ur 12.5 % (NOT ESTAB.); M-Spike,% PEP 24hr Ur Not Observed % (Not Observed); Protein, PEP 24hr calculated 1728 mg/24 hr (30-150); Protein, Urine 93.4 mg/dL (Not Estab.)
[2021-03-13] MEDS: Lorazepam 0.5 MG TAB PO SCH (00:30)
[2021-03-13] MEDS ORDERED: Lorazepam 0.5 MG TAB PO PRN (06:00)
[2021-03-13 06:47] LABS: Albumin 3.3 g/dL (3.5-5.0); Anion Gap 16 mmol/L (10-20); BUN (Urea Nitrogen) 85 mg/dL (8.4-25.7); BUN/Creatinine Ratio 7.69; Calc. Creatinine Clearance 11 mL/min (70-130); Calcium 9.3 mg/dL (7.8-10.44); Carbon Dioxide 19 mmol/L (22-29); Chloride 107 mmol/L (98-107); Glucose 145 mg/dL (70-105); Phosphorus 5.7 mg/dL (2.3-4.7); Potassium 3.8 mmol/L (3.5-5.1); Sodium 138 mmol/L (136-145)
[2021-03-13] MEDS: Thiamine 100 MG TAB PO SCH (09:07)
[2021-03-13] MEDS: Carvedilol 6.25 MG TAB PO SCH ×2 (09:07→20:04)
[2021-03-13] MEDS: NIFEdipine XL 60 MG TAB PO SCH ×2 (09:07→20:05)
[2021-03-13] MEDS: Folic Acid 1 MG TAB PO SCH (09:07)
[2021-03-13] MEDS: Sodium Bicarbonate Tab 325 MG TAB PO SCH ×2 (09:07→20:04)
[2021-03-13] MEDS: Multivit, Therapeutic 1 TAB PO SCH (09:07)
[2021-03-13] MEDS: METHYLPREDNISOLONE SOD SUCC IVPB SCH (12:00)
[2021-03-13] MEDS: SODIUM CHLORIDE 0.9% IVPB SCH (12:00)
[2021-03-13] MEDS: Polyethylene Glycol 3350 17 GM Packet PO PRN (17:40)
[2021-03-13] MEDS: Famotidine 20 MG TAB PO SCH (20:05)
[2021-03-13] MEDS: Lorazepam 0.5 MG TAB PO PRN (20:05)
[2021-03-14 05:39] LABS: Red Blood Cell (RBC) Count 3.58 mill/uL (4.70-6.10); White Blood Cell (WBC) Count 6.5 thou/uL (4.8-10.8)
[2021-03-14 05:40] LABS: Hemoglobin 12.5 g/dL (14.0-18.0); Mean Corpuscular HGB CONC 33.4 g/dL (32.0-36.0); Mean Platelet Volume 7.7 fL (7.4-10.4); Platelet Count 223 thou/uL (130-400); RBC Distribution Width 11.1 % (11.5-14.5)
[2021-03-14 05:54] LABS: Albumin 3.4 g/dL (3.5-5.0); Anion Gap 19 mmol/L (10-20); BUN (Urea Nitrogen) 91 mg/dL (8.4-25.7); BUN/Creatinine Ratio 8.63; Calc. Creatinine Clearance 11 mL/min (70-130); Calcium 8.7 mg/dL (7.8-10.44); Carbon Dioxide 16 mmol/L (22-29); Chloride 105 mmol/L (98-107); Glucose 155 mg/dL (70-105); Phosphorus 6.3 mg/dL (2.3-4.7); Potassium 3.9 mmol/L (3.5-5.1); Sodium 136 mmol/L (136-145)
[2021-03-14] MEDS: Carvedilol 6.25 MG TAB PO SCH ×2 (08:54→20:20)
[2021-03-14] MEDS: Sodium Bicarbonate Tab 325 MG TAB PO SCH ×3 (08:54→20:20)
[2021-03-14] MEDS: Multivit, Therapeutic 1 TAB PO SCH (08:54)
[2021-03-14] MEDS: Thiamine 100 MG TAB PO SCH (08:54)
[2021-03-14] MEDS: NIFEdipine XL 60 MG TAB PO SCH ×2 (08:54→20:21)
[2021-03-14] MEDS: Lorazepam 0.5 MG TAB PO PRN ×3 (08:54→20:20)
[2021-03-14] MEDS: Folic Acid 1 MG TAB PO SCH (08:54)
[2021-03-14] MEDS: Polyethylene Glycol 3350 17 GM Packet PO PRN (11:45)
[2021-03-14] MEDS: Famotidine 20 MG TAB PO SCH (20:21)
[2021-03-15 05:37] LABS: Albumin 3.4 g/dL (3.5-5.0); Anion Gap 18 mmol/L (10-20); BUN (Urea Nitrogen) 100 mg/dL (8.4-25.7); BUN/Creatinine Ratio 9.79; Calc. Creatinine Clearance 12 mL/min (70-130); Calcium 8.9 mg/dL (7.8-10.44); Carbon Dioxide 20 mmol/L (22-29); Chloride 103 mmol/L (98-107); Glucose 90 mg/dL (70-105); Phosphorus 6.2 mg/dL (2.3-4.7); Potassium 3.9 mmol/L (3.5-5.1); Sodium 137 mmol/L (136-145)
[2021-03-15] MEDS: Folic Acid 1 MG TAB PO SCH (09:39)
[2021-03-15] MEDS: NIFEdipine XL 60 MG TAB PO SCH (09:40)
[2021-03-15] MEDS: Multivit, Therapeutic 1 TAB PO SCH (09:40)
[2021-03-15] MEDS: Carvedilol 6.25 MG TAB PO SCH (09:40)
[2021-03-15] MEDS: Sodium Bicarbonate Tab 325 MG TAB PO SCH (09:40)
[2021-03-15] MEDS: Thiamine 100 MG TAB PO SCH (09:41)
[2021-03-15] MEDS: Lorazepam 0.5 MG TAB PO PRN (09:57)
[2021-03-15 12:03] VITALS: TEMP 98.2
[2021-03-15 12:04] VITALS: BP 178/105
[2021-03-15] MEDS ORDERED: Carvedilol 6.25 MG TAB PO SCH (17:00)
[2021-03-17 13:13] LABS: Renin Activity 7.029 ng/mL/hr (0.167-5.380)
== END 2021-03-15 12:15 | disposition home or self-care (01) | DRG 699 ==
LOC: ERS 23:39 → ERHOLD 03-08 03:14 → 2NO 03-08 15:29
PROVIDERS: ADMIT Internal Medicine; ATTEND Internal Medicine
PROC: 0TB13ZX Excision of Left Kidney, Percutaneous Approach, Diagnostic (ICD-10-PCS; principal; 2021-03-14)
DX: N01.9 Rapidly progressive nephritic syndrome with unspecified morphologic changes (principal); E87.1 Hypo-osmolality and hyponatremia; Z20.822 Contact with and (suspected) exposure to COVID-19; F10.130 Alcohol abuse with withdrawal, uncomplicated; I50.42 Chronic combined systolic (congestive) and diastolic (congestive) heart failure; M62.82 Rhabdomyolysis; E87.2 Acidosis; N17.0 Acute kidney failure with tubular necrosis; I25.10 Atherosclerotic heart disease of native coronary artery without angina pectoris; E83.52 Hypercalcemia; E87.6 Hypokalemia; R74.01 Elevation of levels of liver transaminase levels; I25.5 Ischemic cardiomyopathy; D64.9 Anemia, unspecified; E78.5 Hyperlipidemia, unspecified; E78.00 Pure hypercholesterolemia, unspecified; I11.0 Hypertensive heart disease with heart failure; F41.9 Anxiety disorder, unspecified; E86.9 Volume depletion, unspecified; T46.5X5A Adverse effect of other antihypertensive drugs, initial encounter; I25.2 Old myocardial infarction; Z95.5 Presence of coronary angioplasty implant and graft; Z87.442 Personal history of urinary calculi; Z79.01 Long term (current) use of anticoagulants; Z79.82 Long term (current) use of aspirin; Z79.899 Other long term (current) drug therapy
CPT/HCPCS: 36415; 36416; 50200; 71046; 74176; 74185; 76770; 77012; 78451; 80053; 80069; 80306; 81003; 81015; 82088; 82550; 82553; 82570; 83036; 83690; 83735; 83880; 84156; 84166; 84244; 84300; 84484; 84540; 85025; 85027; 85379; 85610; 85652; 85730; 86038; 86140; 86160; 86225; 87086; 88329; 93005; 93010; 93306; 96374; 96375; 96376; A9540; C8901; J0360; J0696; J2060; J2270; J2405; J2930; J3010; J3411; J3490; J7050; J7120; U0002

== ENCOUNTER 2022-07-30 11:58 | Inpatient (IN) | payer BC ==
[2022-07-30] MEDS ORDERED: Nitroglycerin 2% Ointment 1 INCH/1 GM Packet ONE (12:35)
[2022-07-30] MEDS ORDERED: Nitroglycerin 0.4 MG TAB 1 EACH ONE (12:35)
[2022-07-30] MEDS ORDERED: Mag-Al 1200 mg/1200 mg/30 ML UDCUP ONE (12:36)
[2022-07-30] MEDS ORDERED: Lidocaine Viscous Sol 2% 15 ml UD Cup ONE (12:36)
[2022-07-30 12:41] LABS: #Eosinphils 0.1 thou/uL (0.0-0.7); #Monocytes 0.6 thou/uL (0.11-0.59); #Neutrophils 4.4 thou/uL (1.40-6.50); %Basophils 0.7 % (0.0-1.0); %Eosinophils 0.8 % (0.0-10.0); %Lymphocytes 14.2 % (21.0-51.0); %Monocytes 9.8 % (0.0-10.0); %Neutrophils 74.3 % (42.0-75.0); Hemoglobin 14.2 g/dL (14.0-18.0); Mean Corpuscular HGB CONC 34.5 g/dL (32.0-36.0); Mean Corpuscular Hemoglobin 34.2 pg (27.0-31.0); Mean Platelet Volume 9.7 fL (7.4-10.4); Platelet Count 171 10x3/uL (130-400); RBC Distribution Width 12.3 % (11.5-14.5); Red Blood Cell (RBC) Count 4.15 mill/uL (4.70-6.10); White Blood Cell (WBC) Count 5.9 10x3/uL (4.8-10.8)
[2022-07-30 13:02] LABS: ALT (SGPT) 72 U/L (8-55); AST (SGOT) 89 U/L (5-34); Albumin 4.8 g/dL (3.5-5.0); Alkaline Phosphatase 93 U/L (40-110); Anion Gap 18 mmol/L (10-20); BUN (Urea Nitrogen) 15 mg/dL (8.4-25.7); Bilirubin, Total 0.7 mg/dL (0.2-1.2); Calc. Creatinine Clearance 0 mL/min (70-130); Calcium 11.9 mg/dL (7.8-10.44); Carbon Dioxide 16 mmol/L (22-29); Chloride 103 mmol/L (98-107); Estimated GFR 24; Globulin 3.5 g/dL (2.4-3.5); Glucose 173 mg/dL (70-105); Potassium 2.9 mmol/L (3.5-5.1); Protein, Total 8.3 g/dL (6.0-8.3); Sodium 134 mmol/L (136-145)
[2022-07-30] MEDS ORDERED: Potassium Chloride 20 MEQ TAB ONE (14:33)
[2022-07-30] MEDS ORDERED: Ondansetron PF 4 MG/2 ML Vial IVP PRN (15:13)
[2022-07-30] MEDS ORDERED: Nitroglycerin 0.4 MG TAB (25 Tab Bottle) SL PRN (15:13)
[2022-07-30] MEDS ORDERED: Acetaminophen 650 MG Suppository PR PRN (15:13)
[2022-07-30] MEDS ORDERED: Potassium Chloride 20 MEQ TAB PO SCH (15:30)
[2022-07-30 15:37] LABS: CK (CPK) 398 U/L (30-200); Magnesium 2.2 mg/dL (1.6-2.6)
[2022-07-30 16:31] LABS: Troponin I 0.016 ng/mL (< 0.028)
[2022-07-30] MEDS ORDERED: Carvedilol 6.25 MG TAB PO SCH (17:00)
[2022-07-30 19:00] LABS: Troponin I Less than 0.010 ng/mL (< 0.028)
[2022-07-30] MEDS: Heparin 5,000 UNITS/ML VIAL SC SCH (20:11)
[2022-07-30] MEDS: Labetalol HCl 100 MG TAB PO SCH (20:11)
[2022-07-30] MEDS: Famotidine 20 MG TAB PO SCH (20:11)
[2022-07-30] MEDS: HYDROcodone/Acetaminophen 5/325 mg Tablet PO PRN (20:12)
[2022-07-30] MEDS: Rosuvastatin 20 MG TAB PO SCH (20:12)
[2022-07-30] MEDS ORDERED: NIFEdipine XL 60 MG TAB PO SCH (21:00)
[2022-07-31 04:37] LABS: #Monocytes 0.8 thou/uL (0.11-0.59); #Neutrophils 4.8 thou/uL (1.40-6.50); %Basophils 0.6 % (0.0-1.0); %Eosinophils 0.6 % (0.0-10.0); %Lymphocytes 14.7 % (21.0-51.0); %Monocytes 11.7 % (0.0-10.0); %Neutrophils 72.1 % (42.0-75.0); Hemoglobin 13.2 g/dL (14.0-18.0); Mean Corpuscular HGB CONC 34.4 g/dL (32.0-36.0); Mean Corpuscular Volume 101.9 fl (78.0-98.0); Mean Platelet Volume 10.1 fL (7.4-10.4); Platelet Count 151 10x3/uL (130-400); RBC Distribution Width 12.4 % (11.5-14.5); Red Blood Cell (RBC) Count 3.77 mill/uL (4.70-6.10); White Blood Cell (WBC) Count 6.7 10x3/uL (4.8-10.8)
[2022-07-31 04:59] LABS: Anion Gap 12 mmol/L (10-20); BUN (Urea Nitrogen) 17 mg/dL (8.4-25.7); Calc. Creatinine Clearance 40 mL/min (70-130); Calcium 10.6 mg/dL (7.8-10.44); Carbon Dioxide 18 mmol/L (22-29); Cardiac Risk 2.8 (Less than 4.5); Chloride 106 mmol/L (98-107); Cholesterol 207 mg/dl (< 200 Desired); Estimated GFR 26; Glucose 92 mg/dL (70-105); HDL Cholesterol 73 mg/dL (>60 Neg Risk); LDL Cholesterol, Calculated 113 mg/dL; Magnesium 2.2 mg/dL (1.6-2.6); Potassium 2.9 mmol/L (3.5-5.1); Sodium 133 mmol/L (136-145); Triglycerides 107 mg/dL (Less than 150)
[2022-07-31] MEDS ORDERED: Potassium Chloride 20 MEQ TAB PO SCH ×2 (07:45→16:00)
[2022-07-31] MEDS ORDERED: Sodium Chloride 0.9% 1,000 ML IV SCH ×3 (08:00→16:15)
[2022-07-31] MEDS: Thiamine 100 MG TAB PO SCH (08:02)
[2022-07-31] MEDS: Labetalol HCl 100 MG TAB PO SCH ×2 (08:02→19:43)
[2022-07-31] MEDS: Aspirin Chewable 81 MG TAB PO SCH (08:02)
[2022-07-31] MEDS: Clopidogrel Bisulfate 75 MG TAB PO SCH (08:02)
[2022-07-31] MEDS: Folic Acid 1 MG TAB PO SCH (08:02)
[2022-07-31] MEDS: Heparin 5,000 UNITS/ML VIAL SC SCH ×3 (08:03→19:44)
[2022-07-31] MEDS: HYDROcodone/Acetaminophen 5/325 mg Tablet PO PRN (08:07)
[2022-07-31 15:35] LABS: Anion Gap 13 mmol/L (10-20); BUN (Urea Nitrogen) 17 mg/dL (8.4-25.7); Calc. Creatinine Clearance 38 mL/min (70-130); Calcium 10.3 mg/dL (7.8-10.44); Carbon Dioxide 17 mmol/L (22-29); Chloride 107 mmol/L (98-107); Estimated GFR 24; Glucose 122 mg/dL (70-105); Potassium 3.1 mmol/L (3.5-5.1); Sodium 134 mmol/L (136-145)
[2022-07-31 17:04] VITALS: BMI 28.5
[2022-07-31 19:09] LABS: Anion Gap 12 mmol/L (10-20); BUN (Urea Nitrogen) 18 mg/dL (8.4-25.7); CK (CPK) 193 U/L (30-200); Calc. Creatinine Clearance 39 mL/min (70-130); Calcium 10.7 mg/dL (7.8-10.44); Carbon Dioxide 19 mmol/L (22-29); Chloride 108 mmol/L (98-107); Estimated GFR 25; Glucose 92 mg/dL (70-105); Potassium 3.7 mmol/L (3.5-5.1); Sodium 135 mmol/L (136-145)
[2022-07-31] MEDS: Sodium Bicarbonate 150 MEQ in Dextrose 5% in Water 1,000 ML IV SCH (19:21)
[2022-07-31] MEDS: Rosuvastatin 20 MG TAB PO SCH (19:43)
[2022-07-31] MEDS: Famotidine 20 MG TAB PO SCH (19:44)
[2022-07-31 20:26] LABS: Bacteria/HPF None Seen HPF (None Seen); Bilirubin Negative (Negative); Blood, Urine 2+ (Negative); Clarity Clear (Clear); Glucose, Urine (Dipstick) Normal (Negative); Ketone, Urine Negative (Negative); Leukocyte Negative Leu/uL (Negative); Nitrite Negative (Negative); Protein, Urine (Dipstick) 100 mg/dL (Neg-Trace); RBC/HPF 0-3 HPF (0-3); Specific Gravity, Urine 1.008 (1.002-1.036); Squamous Epithelial 0-3 HPF (0-3); Urobilinogen Normal mg/dL (Less than 2); WBC/HPF 0-3 HPF (0-3); pH, Urine 7.5 (5.0-9.0)
[2022-07-31 20:57] LABS: Creatinine, Urine 52.12 mg/dL (63-166)
[2022-08-01 05:06] LABS: Anion Gap 11 mmol/L (10-20); BUN (Urea Nitrogen) 17 mg/dL (8.4-25.7); Calc. Creatinine Clearance 43 mL/min (70-130); Calcium 10.2 mg/dL (7.8-10.44); Carbon Dioxide 18 mmol/L (22-29); Chloride 110 mmol/L (98-107); Estimated GFR 27; Glucose 89 mg/dL (70-105); Potassium 2.8 mmol/L (3.5-5.1); Sodium 136 mmol/L (136-145)
[2022-08-01] MEDS: Sodium Bicarbonate 150 MEQ in Dextrose 5% in Water 1,000 ML IV SCH ×2 (05:37→08:06)
[2022-08-01] MEDS ORDERED: Potassium Chloride 20 MEQ TAB PO SCH (06:30)
[2022-08-01 06:51] LABS: Magnesium 2.2 mg/dL (1.6-2.6); Phosphorus 2.4 mg/dL (2.3-4.7)
[2022-08-01] MEDS: Potassium Bicarbonate/Cit Ac 20 MEQ TAB PO SCH ×2 (08:05→16:51)
[2022-08-01] MEDS: Aspirin Chewable 81 MG TAB PO SCH (08:05)
[2022-08-01] MEDS: Folic Acid 1 MG TAB PO SCH (08:06)
[2022-08-01] MEDS: Labetalol HCl 100 MG TAB PO SCH ×2 (08:07→20:03)
[2022-08-01] MEDS: Thiamine 100 MG TAB PO SCH (08:07)
[2022-08-01] MEDS: Clopidogrel Bisulfate 75 MG TAB PO SCH (08:07)
[2022-08-01] MEDS: Heparin 5,000 UNITS/ML VIAL SC SCH ×3 (08:07→20:04)
[2022-08-01] MEDS ORDERED: NIFEdipine XL 30 MG TAB PO SCH (10:15)
[2022-08-01 10:45] LABS: Amphetamine Not Detected (NotDetected); Barbiturates Screen Not Detected (NotDetected); Benzodiazepine Screen Not Detected (NotDetected); Cocaine Metabolite Screen Not Detected (NotDetected); Methadone Not Detected (NotDetected); Methamphetamine Not Detected (NotDetected); Opiate Screen Detected (NotDetected); Oxycodone Screen Not Detected (NotDetected); Phencyclidine (PCP) Not Detected (NotDetected); THC/Cannabinoid Screen Not Detected (NotDetected); Tricyclic Screen Not Detected (NotDetected)
[2022-08-01 16:28] LABS: Anion Gap 15 mmol/L (10-20); BUN (Urea Nitrogen) 15 mg/dL (8.4-25.7); Calc. Creatinine Clearance 42 mL/min (70-130); Calcium 10.6 mg/dL (7.8-10.44); Carbon Dioxide 17 mmol/L (22-29); Chloride 106 mmol/L (98-107); Estimated GFR 26; Glucose 153 mg/dL (70-105); Potassium 3.1 mmol/L (3.5-5.1); Sodium 135 mmol/L (136-145)
[2022-08-01] MEDS: Rosuvastatin 20 MG TAB PO SCH (20:04)
[2022-08-01] MEDS: Famotidine 20 MG TAB PO SCH (20:04)
[2022-08-02 09:17] LABS: Anion Gap 14 mmol/L (10-20); BUN (Urea Nitrogen) 12 mg/dL (8.4-25.7); Calc. Creatinine Clearance 48 mL/min (70-130); Calcium 11.1 mg/dL (7.8-10.44); Carbon Dioxide 21 mmol/L (22-29); Chloride 104 mmol/L (98-107); Estimated GFR 31; Glucose 111 mg/dL (70-105); Potassium 2.8 mmol/L (3.5-5.1); Sodium 136 mmol/L (136-145)
[2022-08-02] MEDS: Potassium Bicarbonate/Cit Ac 20 MEQ TAB PO SCH ×2 (09:58→16:12)
[2022-08-02] MEDS: Labetalol HCl 100 MG TAB PO SCH ×2 (09:59→20:49)
[2022-08-02] MEDS: Clopidogrel Bisulfate 75 MG TAB PO SCH (09:59)
[2022-08-02] MEDS: Heparin 5,000 UNITS/ML VIAL SC SCH ×3 (09:59→20:52)
[2022-08-02] MEDS: NIFEdipine XL 60 MG TAB PO SCH (10:00)
[2022-08-02] MEDS: Aspirin Chewable 81 MG TAB PO SCH (10:00)
[2022-08-02] MEDS: Folic Acid 1 MG TAB PO SCH (10:00)
[2022-08-02] MEDS: Thiamine 100 MG TAB PO SCH (10:00)
[2022-08-02] MEDS: Sodium Bicarbonate 150 MEQ in Dextrose 5% in Water 1,000 ML IV SCH (10:33)
[2022-08-02] MEDS: Famotidine 20 MG TAB PO SCH (20:49)
[2022-08-02] MEDS: Rosuvastatin 20 MG TAB PO SCH (20:49)
[2022-08-03] MEDS: Sodium Bicarbonate 150 MEQ in Dextrose 5% in Water 1,000 ML IV SCH (01:07)
[2022-08-03 05:35] LABS: #Eosinphils 0.1 thou/uL (0.0-0.7); #Monocytes 0.8 thou/uL (0.11-0.59); #Neutrophils 4.2 thou/uL (1.40-6.50); %Basophils 0.6 % (0.0-1.0); %Eosinophils 2.1 % (0.0-10.0); %Monocytes 12.3 % (0.0-10.0); %Neutrophils 63.8 % (42.0-75.0); Hemoglobin 12.5 g/dL (14.0-18.0); Mean Corpuscular Hemoglobin 34.3 pg (27.0-31.0); Mean Corpuscular Volume 101.1 fl (78.0-98.0); Mean Platelet Volume 10.1 fL (7.4-10.4); Platelet Count 168 10x3/uL (130-400); RBC Distribution Width 12.6 % (11.5-14.5); Red Blood Cell (RBC) Count 3.64 mill/uL (4.70-6.10); White Blood Cell (WBC) Count 6.5 10x3/uL (4.8-10.8)
[2022-08-03 06:27] LABS: ALT (SGPT) 29 U/L (8-55); AST (SGOT) 24 U/L (5-34); Alkaline Phosphatase 76 U/L (40-110); Bilirubin, Direct 0.2 mg/dL (0.1-0.3); Bilirubin, Total 0.3 mg/dL (0.2-1.2); Protein, Total 6.6 g/dL (6.0-8.3)
[2022-08-03 06:36] LABS: Anion Gap 12 mmol/L (10-20); BUN (Urea Nitrogen) 11 mg/dL (8.4-25.7); Calc. Creatinine Clearance 53 mL/min (70-130); Calcium 10.1 mg/dL (7.8-10.44); Carbon Dioxide 23 mmol/L (22-29); Chloride 105 mmol/L (98-107); Estimated GFR 35; Glucose 93 mg/dL (70-105); Sodium 137 mmol/L (136-145)
[2022-08-03 06:37] LABS: Potassium 2.6 mmol/L (3.5-5.1)
[2022-08-03] MEDS: Thiamine 100 MG TAB PO SCH (07:58)
[2022-08-03] MEDS: Potassium Bicarbonate/Cit Ac 20 MEQ TAB PO SCH ×2 (07:58→17:50)
[2022-08-03] MEDS: NIFEdipine XL 60 MG TAB PO SCH (07:58)
[2022-08-03] MEDS: Aspirin Chewable 81 MG TAB PO SCH (07:59)
[2022-08-03] MEDS: Folic Acid 1 MG TAB PO SCH (07:59)
[2022-08-03] MEDS: Labetalol HCl 100 MG TAB PO SCH ×2 (07:59→20:53)
[2022-08-03] MEDS: Clopidogrel Bisulfate 75 MG TAB PO SCH (08:00)
[2022-08-03] MEDS: Heparin 5,000 UNITS/ML VIAL SC SCH ×3 (08:00→20:51)
[2022-08-03] MEDS ORDERED: Potassium Bicarbonate/Cit Ac 20 MEQ TAB PO SCH (12:00)
[2022-08-03 14:42] LABS: Potassium 3.3 mmol/L (3.5-5.1)
[2022-08-03] MEDS: Famotidine 20 MG TAB PO SCH (20:53)
[2022-08-03] MEDS: Rosuvastatin 20 MG TAB PO SCH (20:53)
[2022-08-04 06:13] LABS: Anion Gap 12 mmol/L (10-20); BUN (Urea Nitrogen) 10 mg/dL (8.4-25.7); Calc. Creatinine Clearance 62 mL/min (70-130); Calcium 9.6 mg/dL (7.8-10.44); Carbon Dioxide 22 mmol/L (22-29); Chloride 108 mmol/L (98-107); Estimated GFR 42; Glucose 96 mg/dL (70-105); Magnesium 2.2 mg/dL (1.6-2.6); Sodium 139 mmol/L (136-145)
[2022-08-04] MEDS: Heparin 5,000 UNITS/ML VIAL SC SCH ×3 (08:59→21:24)
[2022-08-04] MEDS: Aspirin Chewable 81 MG TAB PO SCH (08:59)
[2022-08-04] MEDS: Clopidogrel Bisulfate 75 MG TAB PO SCH (08:59)
[2022-08-04] MEDS: Folic Acid 1 MG TAB PO SCH (08:59)
[2022-08-04] MEDS: Potassium Bicarbonate/Cit Ac 20 MEQ TAB PO SCH ×3 (09:00→21:25)
[2022-08-04] MEDS: Labetalol HCl 100 MG TAB PO SCH ×2 (09:00→21:23)
[2022-08-04] MEDS: NIFEdipine XL 60 MG TAB PO SCH (09:00)
[2022-08-04] MEDS: Thiamine 100 MG TAB PO SCH (09:01)
[2022-08-04] MEDS: Rosuvastatin 20 MG TAB PO SCH (21:23)
[2022-08-04] MEDS: Famotidine 20 MG TAB PO SCH (21:23)
[2022-08-05 05:11] LABS: Anion Gap 12 mmol/L (10-20); BUN (Urea Nitrogen) 9 mg/dL (8.4-25.7); Calc. Creatinine Clearance 72 mL/min (70-130); Calcium 9.6 mg/dL (7.8-10.44); Carbon Dioxide 23 mmol/L (22-29); Chloride 108 mmol/L (98-107); Estimated GFR 50; Glucose 96 mg/dL (70-105); Potassium 3.5 mmol/L (3.5-5.1); Sodium 139 mmol/L (136-145)
[2022-08-05 08:21] VITALS: BP 130/82; TEMP 98
[2022-08-05] MEDS ORDERED: Spironolactone 25 MG TAB PO SCH (09:00)
[2022-08-05] MEDS: Heparin 5,000 UNITS/ML VIAL SC SCH (09:07)
[2022-08-05] MEDS: Labetalol HCl 100 MG TAB PO SCH (09:08)
[2022-08-05] MEDS: Aspirin Chewable 81 MG TAB PO SCH (09:08)
[2022-08-05] MEDS: Folic Acid 1 MG TAB PO SCH (09:08)
[2022-08-05] MEDS: Clopidogrel Bisulfate 75 MG TAB PO SCH (09:08)
[2022-08-05] MEDS: Thiamine 100 MG TAB PO SCH (09:08)
[2022-08-05] MEDS: NIFEdipine XL 60 MG TAB PO SCH (09:08)
== END 2022-08-05 11:20 | disposition home or self-care (01) | DRG 683 ==
LOC: ERS 11:58 → SUATTDRO 11:58 → 2SW 15:48 → OBSVTOIN 07-31 16:06
PROVIDERS: ADMIT Internal Medicine; ATTEND Emergency Medicine
DX: N17.0 Acute kidney failure with tubular necrosis (principal); E87.20 Acidosis, unspecified; I50.32 Chronic diastolic (congestive) heart failure; I13.0 Hypertensive heart and chronic kidney disease with heart failure and stage 1 through stage 4 chronic kidney disease, or unspecified chronic kidney disease; M62.82 Rhabdomyolysis; E78.5 Hyperlipidemia, unspecified; I25.10 Atherosclerotic heart disease of native coronary artery without angina pectoris; E87.6 Hypokalemia; N18.30 Chronic kidney disease, stage 3 unspecified; E86.9 Volume depletion, unspecified; I25.5 Ischemic cardiomyopathy; E83.52 Hypercalcemia; F10.10 Alcohol abuse, uncomplicated; E83.42 Hypomagnesemia; I25.2 Old myocardial infarction; Z79.899 Other long term (current) drug therapy; Z95.5 Presence of coronary angioplasty implant and graft
CPT/HCPCS: 36415; 71045; 76770; 80048; 80053; 80061; 80076; 80306; 81001; 82088; 82550; 82570; 83690; 83735; 83880; 83970; 84100; 84156; 84244; 84300; 84484; 84540; 85025; 93005; 93010; 93306; 94760; G0378; J1644; J7050; J7070

== ENCOUNTER 2023-02-03 09:36 | Outpatient (CLI) | payer BC | END 2023-02-03 09:37 | disposition home or self-care (01) | LOC: BICRAD 09:36 | PROVIDERS: ATTEND Nurse Practitioner Family | DX: M54.50 Low back pain, unspecified (principal); Q76.49 Other congenital malformations of spine, not associated with scoliosis | CPT/HCPCS: 72100; 72220 ==

== ENCOUNTER 2024-10-24 09:25 | Inpatient (IN) | payer BC ==
[2024-10-24 10:13] LABS: #Basophils 0.04 10x3/uL (0.0-0.2); #Eosinophils 0.08 10x3/uL (0.0-0.7); #Monocytes 0.38 10x3/uL (0.11-0.59); #Neutrophils 3.28 10x3/uL (1.40-6.50); %Basophils 0.9 % (0.0-1.0); %Eosinophils 1.8 % (0.0-10.0); %Lymphocytes 13.8 % (21.0-51.0); %Monocytes 8.6 % (0.0-10.0); %Neutrophils 74.2 % (42.0-75.0); Hematocrit 25.9 % (42.0-52.0); Hemoglobin 8.9 g/dL (14.0-18.0); Mean Corpuscular Hemoglobin 36.9 pg (27.0-31.0); Mean Corpuscular Volume 107.5 fL (78.0-98.0); Platelet Count 142 10x3/uL (130-400); Red Blood Cell (RBC) Count 2.41 mill/uL (4.70-6.10); White Blood Cell (WBC) Count 4.42 10x3/uL (4.8-10.8)
[2024-10-24 10:39] LABS: ALT (SGPT) 51 U/L (Less than 45); AST (SGOT) 219 U/L (11-34); Albumin 3.4 g/dL (3.1-4.5); Alkaline Phosphatase 238 U/L (40-110); Anion Gap 25 mmol/L (10-20); BUN (Urea Nitrogen) 7 mg/dL (8.4-25.7); Bilirubin, Total 2.2 mg/dL (0.3-1.2); Calc. Creatinine Clearance 0 mL/min (70-130); Calcium 9.7 mg/dL (7.8-10.44); Carbon Dioxide 22 mmol/L (22-29); Chloride 94 mmol/L (98-107); Globulin 4.0 g/dL (2.4-3.5); Glucose 77 mg/dL (70-105); Potassium 2.9 mmol/L (3.5-5.1); Sodium 138 mmol/L (136-145)
[2024-10-24 10:40] LABS: Troponin I 0.044 ng/mL (< 0.028)
[2024-10-24 11:52] LABS: Magnesium 1.4 mg/dL (1.6-2.6)
[2024-10-24] MEDS ORDERED: Magnesium 2 GM/50 ML BAG (IN WATER) ONE (12:54)
[2024-10-24 13:35] LABS: Troponin I 0.037 ng/mL (< 0.028)
[2024-10-24] MEDS ORDERED: Ondansetron PF 4 MG/2 ML Vial IVP PRN (14:22)
[2024-10-24] MEDS ORDERED: Acetaminophen 325 MG TAB PO PRN (14:22)
[2024-10-24 14:39] LABS: Acetaminophen Less than 10 mcg/mL (Less than 10); Salicylate Less than 8.0 mg/dL (Less than 8.0)
[2024-10-24] MEDS ORDERED: Electrolyte Replacement Protocol 1 EACH FS SCH (15:30)
[2024-10-24 17:54] VITALS: BMI 28.0
[2024-10-24 18:15] LABS: Troponin I 0.034 ng/mL (< 0.028)
[2024-10-24] MEDS: Magnesium 2 GM/50 ML(in water) Premix IVPB SCH (18:26)
[2024-10-24] MEDS: Famotidine/PF 20 mg/2ml Vial SLOW IVP SCH (21:09)
[2024-10-24 21:44] LABS: Cocaine Metabolite Screen Negative (Negative); THC/Cannabinoid Screen PRELIM POSITIVE (Negative); Tricyclic Screen Negative (Negative)
[2024-10-25 00:20] LABS: Potassium 3.4 mmol/L (3.5-5.1)
[2024-10-25 04:45] LABS: #Basophils 0.05 10x3/uL (0.0-0.2); #Eosinophils 0.03 10x3/uL (0.0-0.7); #Monocytes 0.40 10x3/uL (0.11-0.59); #Neutrophils 3.51 10x3/uL (1.40-6.50); %Basophils 1.1 % (0.0-1.0); %Eosinophils 0.7 % (0.0-10.0); %Lymphocytes 10.0 % (21.0-51.0); %Monocytes 8.9 % (0.0-10.0); %Neutrophils 78.2 % (42.0-75.0); Hematocrit 26.0 % (42.0-52.0); Hemoglobin 8.7 g/dL (14.0-18.0); Mean Corpuscular Hemoglobin 36.3 pg (27.0-31.0); Mean Corpuscular Volume 108.3 fL (78.0-98.0); Platelet Count 139 10x3/uL (130-400); Red Blood Cell (RBC) Count 2.40 mill/uL (4.70-6.10); White Blood Cell (WBC) Count 4.49 10x3/uL (4.8-10.8)
[2024-10-25 05:07] LABS: ALT (SGPT) 51 U/L (Less than 45); AST (SGOT) 210 U/L (11-34); Albumin 3.3 g/dL (3.1-4.5); Alkaline Phosphatase 233 U/L (40-110); Anion Gap 27 mmol/L (10-20); BUN (Urea Nitrogen) 5 mg/dL (8.4-25.7); Bilirubin, Total 2.5 mg/dL (0.3-1.2); Calc. Creatinine Clearance 142 mL/min (70-130); Calcium 8.7 mg/dL (7.8-10.44); Carbon Dioxide 17 mmol/L (22-29); Chloride 96 mmol/L (98-107); Globulin 4.0 g/dL (2.4-3.5); Glucose 87 mg/dL (70-105); Potassium 3.4 mmol/L (3.5-5.1); Sodium 137 mmol/L (136-145)
[2024-10-25 09:24] LABS: Magnesium 1.9 mg/dL (1.6-2.6)
[2024-10-25] MEDS: Multivit, Therapeutic 1 TAB PO SCH (11:36)
[2024-10-25] MEDS: Rosuvastatin 20 MG TAB PO SCH (11:36)
[2024-10-25] MEDS: Folic Acid 1 MG TAB PO SCH (11:36)
[2024-10-25] MEDS: Magnesium 2 GM/50 ML(in water) 2 GM in Premix 1 BAG IVPB SCH (11:36)
[2024-10-25] MEDS: Metoprolol Succinate XL 25 MG ER.TAB PO SCH (11:36)
[2024-10-25] MEDS: Enoxaparin 40 MG (0.4 mL) SYRINGE SC SCH (11:36)
[2024-10-25] MEDS: Melatonin 3 MG TAB PO PRN (20:11)
[2024-10-26 04:53] LABS: ALT (SGPT) 43 U/L (Less than 45); AST (SGOT) 191 U/L (11-34); Albumin 3.1 g/dL (3.1-4.5); Alkaline Phosphatase 219 U/L (40-110); Anion Gap 18 mmol/L (10-20); BUN (Urea Nitrogen) 5 mg/dL (8.4-25.7); Bilirubin, Total 1.9 mg/dL (0.3-1.2); Calc. Creatinine Clearance 132 mL/min (70-130); Calcium 8.4 mg/dL (7.8-10.44); Carbon Dioxide 21 mmol/L (22-29); Chloride 99 mmol/L (98-107); Globulin 3.7 g/dL (2.4-3.5); Glucose 112 mg/dL (70-105); Magnesium 1.9 mg/dL (1.6-2.6); Potassium 3.0 mmol/L (3.5-5.1); Sodium 135 mmol/L (136-145)
[2024-10-26 05:01] LABS: Hematocrit 23.9 % (42.0-52.0); Hemoglobin 8.1 g/dL (14.0-18.0); Mean Corpuscular Hemoglobin 37.3 pg (27.0-31.0); Mean Corpuscular Volume 110.1 fL (78.0-98.0); Platelet Count 126 10x3/uL (130-400); Red Blood Cell (RBC) Count 2.17 mill/uL (4.70-6.10); White Blood Cell (WBC) Count 4.90 10x3/uL (4.8-10.8)
[2024-10-26] MEDS: Magnesium 2 GM/50 ML(in water) 2 GM in Premix 1 BAG IVPB SCH (09:14)
[2024-10-26] MEDS: Metoprolol Succinate XL 25 MG ER.TAB PO SCH (09:16)
[2024-10-26] MEDS: Spironolactone 25 MG TAB PO SCH (09:17)
[2024-10-27 04:41] LABS: Hematocrit 22.5 % (42.0-52.0); Hemoglobin 7.5 g/dL (14.0-18.0); Mean Corpuscular Hemoglobin 37.3 pg (27.0-31.0); Mean Corpuscular Volume 111.9 fL (78.0-98.0); Platelet Count 129 10x3/uL (130-400); Red Blood Cell (RBC) Count 2.01 mill/uL (4.70-6.10); White Blood Cell (WBC) Count 4.62 10x3/uL (4.8-10.8)
[2024-10-27 04:51] LABS: Anion Gap 13 mmol/L (10-20); BUN (Urea Nitrogen) Less than 4 mg/dL (8.4-25.7); Calc. Creatinine Clearance 128 mL/min (70-130); Calcium 8.3 mg/dL (7.8-10.44); Carbon Dioxide 22 mmol/L (22-29); Chloride 103 mmol/L (98-107); Glucose 104 mg/dL (70-105); Iron 36 ug/dL (65-175); Iron Binding Capacity, Total 155 mcg/dL (261-462); Magnesium 2.0 mg/dL (1.6-2.6); Potassium 3.1 mmol/L (3.5-5.1); Sodium 135 mmol/L (136-145)
[2024-10-27 04:52] LABS: Immunoglob - A (Total IgA) 437 mg/dL (63-484); Immunoglob - G (Total IgG) 1015 mg/dL (540-1822); Immunoglob - M (Total IgM) 154 mg/dL (22-240); Iron 36 ug/dL (65-175); Iron Binding Capacity, Total 151 mcg/dL (261-462)
[2024-10-27 05:14] LABS: Hep A IgM AB NONREACTIVE (NonReactive); Hep A IgM S/CO 0.18 S/CO (0-0.79); Hep B Core IgM Index 0.13 S/CO (0-0.79); Hep B Surf Ag NONREACTIVE S/CO (NonReactive); Hep C IgG Ab NONREACTIVE S/CO (NonReactive); Hep C Index 0.16 S/CO (0-0.79)
[2024-10-27 06:08] LABS: Ferritin 2616.82 ng/mL (22-322)
[2024-10-27] MEDS: Magnesium 2 GM/50 ML(in water) 2 GM in Premix 1 BAG IVPB SCH (08:52)
[2024-10-27 12:35] VITALS: BP 99/63; TEMP 98.5
[2024-10-27 13:17] LABS: Hemoglobin 7.7 g/dL (14.0-18.0)
[2024-10-28 13:05] LABS: ANA Symphony (Qualitative) Negative (Negative); ANA Symphony (Quantitative) 0.2 Ratio (< 0.7 Negative); EliA Vaculitis New Method **** NEW METHOD ****; Mitochondrial Ab 0.8 U/mL (<4 Negative); dsDNA IgG Antibody 1.2 IU/mL (<10 Negative)
[2024-10-28] MEDS ORDERED: Thiamine 100 MG TAB PO SCH (21:00)
[2024-10-29 14:38] LABS: Smooth Muscle Total ABS 24.0 Units (0-19)
== END 2024-10-27 17:09 | disposition home or self-care (01) | DRG 149 ==
LOC: ERS 09:25 → 2NO 17:14 → OBSVTOIN 10-25 10:35
PROVIDERS: ADMIT Hospitalist; ATTEND Internal Medicine
DX: R42 Dizziness and giddiness (principal); E78.5 Hyperlipidemia, unspecified; R79.89 Other specified abnormal findings of blood chemistry; I11.0 Hypertensive heart disease with heart failure; I50.9 Heart failure, unspecified; F41.9 Anxiety disorder, unspecified; I25.10 Atherosclerotic heart disease of native coronary artery without angina pectoris; E87.6 Hypokalemia; D53.1 Other megaloblastic anemias, not elsewhere classified; K74.60 Unspecified cirrhosis of liver; F10.10 Alcohol abuse, uncomplicated; I25.2 Old myocardial infarction; Z87.442 Personal history of urinary calculi; Z98.890 Other specified postprocedural states; Z79.899 Other long term (current) drug therapy; Z95.5 Presence of coronary angioplasty implant and graft
CPT/HCPCS: 36415; 70450; 71045; 76705; 80048; 80053; 80074; 80306; 80307; 82103; 82274; 82390; 82607; 82728; 83516; 83540; 83550; 83735; 84484; 85025; 85027; 86015; 86038; 86225; 93005; 93306; J1308; J1650; J2060; J3411; J3475; J7030

== ENCOUNTER 2024-12-23 08:32 | Day surgery (SDC) | payer BC ==
[2024-12-23] MEDS ORDERED: PROPOFOL 40 ML ONE (10:50)
[2024-12-23] MEDS ORDERED: Glycopyrrolate 0.2 MG/ML 5 ML SYRINGE ONE (11:44)
[2024-12-23] MEDS ORDERED: Ketamine In 0.9 % NaCl 50 MG/5 ML SYRINGE ONE (11:52)
[2024-12-23] MEDS ORDERED: PROPOFOL 20 ML ONE (12:04)
== END 2024-12-23 13:50 | disposition home or self-care (01) ==
LOC: SDC 08:32
PROVIDERS: ATTEND Internal Medicine
DX: Z12.11 Encounter for screening for malignant neoplasm of colon (principal); D12.2 Benign neoplasm of ascending colon; D12.3 Benign neoplasm of transverse colon; K70.30 Alcoholic cirrhosis of liver without ascites; K31.89 Other diseases of stomach and duodenum; K57.30 Diverticulosis of large intestine without perforation or abscess without bleeding; K64.4 Residual hemorrhoidal skin tags; K64.8 Other hemorrhoids; K21.9 Gastro-esophageal reflux disease without esophagitis; K76.6 Portal hypertension; R19.5 Other fecal abnormalities; E78.5 Hyperlipidemia, unspecified; D53.9 Nutritional anemia, unspecified; Z87.891 Personal history of nicotine dependence
CPT/HCPCS: 88305; J2704; J3490

== ENCOUNTER 2025-01-26 09:50 | Outpatient (CLI) | payer BC | END 2025-01-26 09:51 | disposition home or self-care (01) | LOC: ULT 09:50 | PROVIDERS: ATTEND Internal Medicine | DX: K70.30 Alcoholic cirrhosis of liver without ascites (principal); R16.2 Hepatomegaly with splenomegaly, not elsewhere classified; K82.8 Other specified diseases of gallbladder | CPT/HCPCS: 76705 ==